=== PATIENT | female | born 1980 | race Caucasian/White ===

== ENCOUNTER 2021-09-28 10:56 | Outpatient (CLI) | payer OTHER | END 2021-09-28 11:59 | disposition home or self-care (01) | LOC: NST 10:56 | PROVIDERS: ATTEND Obstetrics & Gynecology Maternal & Fetal Medicine | DX: Z34.82 Encounter for supervision of other normal pregnancy, second trimester (principal) ==

== ENCOUNTER 2021-11-17 10:51 | Inpatient (IN) | payer OTHER ==
[~2021-11-17] VITALS: Ht 165.1 cm; Wt 2.3 kg
[2021-11-17] MEDS ORDERED: ADULT LOW DOSE81 M1 PO (11:01)
[2021-11-17] MEDS ORDERED: PRENATAL TABLE1 EAC1 PO (11:01)
== END 2021-11-21 17:24 | disposition home or self-care (01) | DRG 786 ==
LOC: OB/GYN 10:51 → O/R 10:51 → LDR 10:51 → O/R 12:19 → OB/GYN 15:25 → ICU 11-18 21:02 → OB/GYN 11-19 13:45
PROVIDERS: ADMIT Obstetrics & Gynecology Gynecology; ATTEND Obstetrics & Gynecology Gynecology
PROC: 4A1HXCZ Monitoring of Products of Conception, Cardiac Rate, External Approach (ICD-10-PCS; 2021-11-17)
PROC: 30233N1 Transfusion of Nonautologous Red Blood Cells into Peripheral Vein, Percutaneous Approach (ICD-10-PCS; 2021-11-17)
PROC: 30233R1 Transfusion of Nonautologous Platelets into Peripheral Vein, Percutaneous Approach (ICD-10-PCS; 2021-11-17)
PROC: 10D00Z1 Extraction of Products of Conception, Low, Open Approach (ICD-10-PCS; principal; 2021-11-18)
PROC: B54DZZZ Ultrasonography of Bilateral Lower Extremity Veins (ICD-10-PCS; 2021-11-21)
DX: O36.8130 Decreased fetal movements, third trimester, not applicable or unspecified (principal); O45.093 Premature separation of placenta with other coagulation defect, third trimester; O60.14X0 Preterm labor third trimester with preterm delivery third trimester, not applicable or unspecified; D62 Acute posthemorrhagic anemia; O99.013 Anemia complicating pregnancy, third trimester; O34.211 Maternal care for low transverse scar from previous cesarean delivery; O12.03 Gestational edema, third trimester; Z3A.35 35 weeks gestation of pregnancy; Z37.0 Single live birth

== ENCOUNTER 2022-10-08 07:21 | Emergency (ER) | payer OTHER ==
[~2022-10-08] VITALS: Ht 165.1 cm; Wt 57.2 kg
[~2022-10-08 07:21] MED LIST: ADULT LOW DOSE81 M1 PO; PRENATAL TABLE1 EAC1 PO
== END 2022-10-08 12:16 | disposition home or self-care (01) ==
LOC: ER 07:21
DX: U07.1 COVID-19 (principal)